=== PATIENT | female | born 1935 | race Caucasian/White ===

== ENCOUNTER 2017-02-28 23:26 | Emergency (ER) | payer OTHER ==
[2017-02-28 23:39] VITALS: BP 222/89; BMI 21.9
[2017-02-28] MEDS ORDERED: NEOSPORIN OINT ONE (23:50)
--- NOTE | 2017-02-28 23:54 | DR.GENAD ---
HPI - PCP Primary Care Physician: tucker - Complaint/Symptoms Chief Complaint Doctors Comments: Bleeding from rt. right after being scratched by her pet this afternoon.It was still bleeding is why she came to be seen about. She takes a blood thinner + a daily ASA. Chief Complaint:: pt has a scratch to rt hand from her puppy - Nurses notes reviewed Nurses Notes Review: Yes - Source History Provided: Patient - Mode of Arrival Mode of Arrival: Ambulatory - Timing Onset of Chief Complaint: 02/28/17 PMH - PMH Past Medical History: Yes Past Medical History: Arthritis, COPD, Dyslipidemia, GERD, Hypertension Past Surgical History: Yes Surgical History: Cholecystectomy, Hysterectomy Past Surgical History Comment: a fib - Family History History of Family Medical Conditions: Yes Family Medical History: Coronary Artery Disease, Hypertension - Social History Type of Tobacco Use: Cigarettes Does any household member use tobacco: No Alcohol Use: None Do you use any recreational Drugs:: No Lives With: Family Lives Where: Home - infectious screening In the last 2 months have you had wt loss of >10#?: NO Have you had fever, night sweats or hemotysis?: No Have you traveled outside the country in the last 6 months?: No Isolation: Standard ROS - Review of Systems Constitutional: No Symptoms Reported Eyes: No Symptoms Reported ENTM: No Symptoms Reported Respiratoy: No Symptoms Reported Cardiovascular: No Symptoms Reported Gastrointestinal/Abdominal: No Symptoms Reported Genitourinary: No Symptoms Reported Neurological: No Symptoms Reported Musculoskeletal: No Symptoms Reported Integumentary: Other (bleeding from a scratch) Hematologic/Lymphatic: No Symptoms Reported Endocrine: No Symptoms Reported Psychiatric: No Symptoms Reported All Other Systems: Reviewed and Negative PE - Vital Signs Vitals: Temperature 978 F Pulse Rate 61 Respiratory Rate 18 Blood Pressure [Left Arm] 176/57 Blood Pressure [Standing] 207/91 Blood Pressure [Sitting] 212/91 Blood Pressure [Lying] 210/91 Blood Pressure 222/89 O2 Sat by Pulse Oximetry 99 - General Limitations: No Limitations General Appearance: Alert, In No Apparent Distress - Head Head Exam: Normal Inspection, Normocephalic - Eyes Eye exam: Normal Appearance - ENT ENT Exam: Normal Exam - Neck Neck Exam: Normal Inspection, Full ROM, Trachea Midline - Chest Chest Inspection: Normal Inspection - Respiratory Respiratory Exam: Normal Lung Sounds Bilat - Cardiovascular Cardiovascular Exam: Regular Rate, Normal Rhythm, +S1, +S2 - Abdominal Exam Abdominal Exam: Normal Bowel Sounds, Soft - Extremities Extremities Exam: Normal Inspection, Normal Capillary Refill - Back Back Exam: Normal Inspection - Neurologic Neurological Exam: Alert, Oriented X3, CN II-XII Intact - Psychiatric Psychiatric Exam: Normal Affect - Skin Skin Exam: Warm, Dry, Other (Dry, brittle skin. A small cut on the dorsum or the rt. hand between her 1st and 2nd metarcarpal. this has small oozing blood from it. Bleeding is controlled with pressure dressing.) Course - Reevaluation 1st: Improved - Diagnosis Discharge Problem: Puncture wound of hand, right - Discharge Plan Disposition: 01 HOME, SELF-CARE Condition: Stable - Follow ups/Referrals Follow ups/Referrals: NKECHI LOPEZ [Primary Care Provider] - 3 days - Instructions
== END 2017-03-01 00:03 | disposition home or self-care (01) ==
LOC: ER 23:26
PROC: 0XQJXZZ Repair Right Hand, External Approach (ICD-10-PCS; principal; 2017-02-28)
DX: S61.431A Puncture wound without foreign body of right hand, initial encounter (principal); W45.8XXA Other foreign body or object entering through skin, initial encounter
CPT/HCPCS: 12001; 99282

== ENCOUNTER 2018-05-15 09:05 | Inpatient (IN) ==
--- NOTE | 2018-05-15 09:36 | DR.SOBA ---
HPI Time Seen Time Seen by Provider: 05/15/18 09:34 Primary Care Physician Primary Care Physician: DR LOPEZ Complaints Chief Complaint:: PT C/O 2 DAY HISTORY OF SHORTNESS OF BREATH WHICH WAS MORE SEVERE WHEN SHE WOKE UP THIS MORNING. SOB IS WORSENED WITH ANY EXERTION. PT ALSO C/O NONPRODUCTIVE COUGH AND CHILLS. Source History Provided: Patient Mode of Arrival Mode of Arrival: Ambulatory Timing Onset of Chief Complaint: 05/15/18 PMH PMH Past Medical History: Yes Past Medical History: Arthritis, COPD, Dyslipidemia and Hypertension Past Medical History Comment: AFIB Past Surgical History: Yes Surgical History: Cholecystectomy and Hysterectomy Family History History of Family Medical Conditions: Yes Family Medical History: Diabetes Mellitus and Cancer Social History Does patient currently use any type of tobacco product: No Have you used tobacco products in the last 12 months: No Type of Tobacco Use: None Does any household member use tobacco: Yes Alcohol Use: None Do you use any recreational Drugs:: No Lives With: Spouse Lives Where: Home infectious screening In the last 2 months have you had wt loss of >10#?: NO Have you had fever, night sweats or hemotysis?: No Have you traveled outside the country in the last 6 months?: No Isolation: Standard ROS Review of Systems Constitutional: Weakness Eyes: No Symptoms Reported ENTM: No Symptoms Reported Respiratoy: See HPI, Non-Productive Cough, Moist Cough, Dry Cough and Short of Breath Cardiovascular: No Symptoms Reported Gastrointestinal/Abdominal: No Symptoms Reported Genitourinary: No Symptoms Reported Neurological: No Symptoms Reported Musculoskeletal: No Symptoms Reported and See HPI Integumentary: No Symptoms Reported and See HPI Hematologic/Lymphatic: No Symptoms Reported PE Vital Signs Vitals: Temperature 97.8 F Pulse Rate [Left Radial] 61 Pulse Rate 47 Respiratory Rate 20 Blood Pressure [Right Arm] 206/84 Blood Pressure [Left Arm] 162/72 Blood Pressure [Standing] 207/91 Blood Pressure [Sitting] 212/91 Blood Pressure [Lying] 210/91 Blood Pressure 204/82 O2 Sat by Pulse Oximetry 97 General Limitations: Physical Limitation General Appearance: Alert and Anxious Head Head Exam: Normal Inspection, Atraumatic and Normocephalic Eyes Eye exam: Normal Appearance, PERRL and EOMI ENT ENT Exam: Normal Exam, Normal Oropharynx and Normal External Ear Exam Chest Chest Inspection: Normal Inspection and Symmetric Chest Wall Rise Respiratory Respiratory Exam: Accessory Muscle Use Respiratory Exam: Bilateral: Rhonchi Cardiovascular Cardiovascular Exam: Regular Rate and Normal Rhythm Abdominal Exam Abdominal Exam: Normal Inspection and Normal Bowel Sounds Extremities Extremities Exam: Normal Inspection and Full ROM Back Back Exam: Normal Inspection and Full ROM Neurologic Neurological Exam: Alert, Oriented X3 and CN II-XII Intact Psychiatric Psychiatric Exam: Normal Affect and Normal Mood Skin Skin Exam: Warm, Dry, Intact and Normal Color COURSE Treatment Treatment: DuoNeb,Decadron Reevaluation 1st: Improved Consultation Called: 11:05 Consultation Comments: Case discussed with Dr. Robins who agreed to admit for pneumonia protocol and further workup and treatment ROR Labs Reviewed Result Diagrams: 05/15/18 10:50 05/15/18 10:50 Laboratory: WBC 6.3 X10^3/uL (3.6-10.0) 05/15/18 10:50 RBC 3.70 X10^6/uL (3.5-5.4) 05/15/18 10:50 Hgb 11.3 g/dL (12.0-16.0) L 05/15/18 10:50 Hct 34.3 % (36.0-47.0) L 05/15/18 10:50 MCV 92.7 fL (80.0-100.0) 05/15/18 10:50 MCH 30.4 pg (27.0-34.0) 05/15/18 10:50 MCHC 32.8 g/dL (33.0-35.0) L 05/15/18 10:50 RDW 14.5 % (11.6-16.5) 05/15/18 10:50 Plt Count 239 X10^3/uL (150.0-450.0) 05/15/18 10:50 MPV 9.8 fL (7.4-11.0) 05/15/18 10:50 Neut % (Auto) 76.0 % (42.0-75.0) H 05/15/18 10:50 Lymph % (Auto) 13.8 % (21.0-51.0) L 05/15/18 10:50 [place] % (Auto) 6.6 % (0.0-13.0) 05/15/18 10:50 Eos % (Auto) 2.2 % (0.9-2.9) 05/15/18 10:50 Baso % (Auto) 1.4 % (0.2-1.0) H 05/15/18 10:50 Neut # (Auto) 4.8 x10^3/uL (2.2-4.8) 05/15/18 10:50 Lymph # (Auto) 0.9 X10^3/uL (1.3-2.9) L 05/15/18 10:50 [place] # (Auto) 0.4 x10^3/uL (0.3-0.8) 05/15/18 10:50 Eos # (Auto) 0.1 x10^3/uL (0.0-0.2) 05/15/18 10:50 Baso # (Auto) 0.1 X10^3/uL (0.0-0.1) 05/15/18 10:50 Absolute Nucleated RBC 0.0 /100WBC 05/15/18 10:50 D-Dimer 1230 ng/mL (0-400) H* 05/15/18 10:50 Sodium 141 mmol/L (136-145) 05/15/18 10:50 Corrected Sodium TNP 05/15/18 10:50 Potassium 4.7 mmol/L (3.5-5.1) 05/15/18 10:50 Chloride 102 mmol/L (98-107) 05/15/18 10:50 Carbon Dioxide 31.4 mmol/L (21-32) 05/15/18 10:50 BUN 26 mg/dL (7-18) H 05/15/18 10:50 Creatinine 1.54 mg/dL (0.55-1.02) H 05/15/18 10:50 Est GFR (MDRD) Af Amer 42 (>60) L 05/15/18 10:50 Est GFR (MDRD) Non-Af 34 (>60) L 05/15/18 10:50 Glucose 109 mg/dL (65-99) H 05/15/18 10:50 Calcium 9.3 mg/dL (8.5-10.1) 05/15/18 10:50 Corrected Calcium TNP 05/15/18 10:50 Total Bilirubin 0.50 mg/dL (0.2-1.0) 05/15/18 10:50 AST 35 Units/L (15-37) 05/15/18 10:50 ALT 33 Units/L (12-78) 05/15/18 10:50 Alkaline Phosphatase 157 Units/L (46-116) H 05/15/18 10:50 Creatine Kinase 233 Units/L (26-192) H 05/15/18 10:50 CK-MB (CK-2) 4.6 ng/mL (0-4.0) H* 05/15/18 10:50 CK/CKMB % Calc 2.0 % (<4) 05/15/18 10:50 Troponin I < 0.02 ng/mL (0-1.5) 05/15/18 10:50 C-Reactive Protein 3.30 mg/L (0-3.0) H 05/15/18 10:50 Total Protein 7.3 g/dL (6.4-8.2) 05/15/18 10:50 Albumin 3.7 g/dL (3.4-5.0) 05/15/18 10:50 Globulin 3.6 g/dL (2.5-4.5) 05/15/18 10:50 Albumin/Globulin Ratio 1.0 Ratio (1.1-2.1) L 05/15/18 10:50 Specimen Type Catherized urine 05/15/18 12:52 Urine Color Yellow (YELLOW) 05/15/18 12:52 Urine Appearance Clear (CLEAR) 05/15/18 12:52 Urine pH 6.5 (5.0 - 8.0) 05/15/18 12:52 Ur Specific [place] 1.010 (1.000-1.030) 05/15/18 12:52 Urine Protein Negative (NEGATIVE) 05/15/18 12:52 Urine Glucose (UA) Negative (NEGATIVE) 05/15/18 12:52 Urine Ketones Negative (NEGATIVE) 05/15/18 12:52 Urine Occult Blood Negative (NEGATIVE) 05/15/18 12:52 Urine Nitrite Negative (NEGATIVE) 05/15/18 12:52 Urine Bilirubin Negative (NEGATIVE) 05/15/18 12:52 Urine Urobilinogen Normal (NORMAL) 05/15/18 12:52 Ur Leukocyte Esterase Negative (NEGATIVE) 05/15/18 12:52 Urine RBC 0-2 /HPF (NONE SEEN) 05/15/18 09:44 Urine WBC 0-2 /HPF (NONE SEEN) 05/15/18 09:44 Ur Squamous Epith Cells Rare /HPF (NEGATIVE) 05/15/18 09:44 Amorphous Sediment Trace /HPF (NEGATIVE) 05/15/18 09:44 Urine Bacteria Trace /HPF (NEGATIVE) 05/15/18 09:44 Ur Culture Indicated? No/not indicated 05/15/18 09:44 Other Results Comments: Chest: the heart is enlarged. The pulmonary vessels are now distended and indistinct with bilateral perihilar and lower lobe infiltrates. Suspect right subpulmonic effusion. Impression: Cardiac enlargement with additional described findings consistent whith CHF and interstitial edema. Superimposed pneumonia could be present. XRAY XRAY Interpreted by: Radiologist Diagnosis Discharge Problem: Pneumonia, CHF (congestive heart failure), COPD (chronic obstructive pulmonary disease)
[2018-05-15] MEDS ORDERED: DUONEB 0.5 MG/3 MG NEB ONE (09:44)
[2018-05-15] MEDS ORDERED: DECADRON INJ IM ONE (09:44)
[2018-05-15] MEDS ORDERED: DUONEB 0.5 MG/3 MG ONE (09:53)
[2018-05-15] MEDS ORDERED: DECADRON INJ ONE (09:53)
[2018-05-15 10:00] LABS: BILIRUBIN,URINE NEGATIVE (NEGATIVE); BLOOD/HEMOGLOBIN,URINE NEGATIVE (NEGATIVE); GLUCOSE, URINE NEGATIVE (NEGATIVE); KETONES,URINE NEGATIVE (NEGATIVE); LEUKOCYTE ESTERASE ,URINE NEGATIVE (NEGATIVE); NITRITES,URINE NEGATIVE (NEGATIVE); PROTEIN,URINE 1+ (NEGATIVE); UROBILINOGEN,URINE NORMAL (NORMAL)
[2018-05-15 10:02] LABS: APPEARANCE,URINE CLEAR (CLEAR); COLOR,URINE YELLOW (YELLOW)
[2018-05-15 10:05] LABS: RBC,URINE 0-2 /HPF (NONE SEEN)
[2018-05-15 10:06] LABS: AMORPHOUS SEDIMENT,UR TRACE /HPF (NEGATIVE); BACTERIA,URINE TRACE /HPF (NEGATIVE); SQUAMOUS EPITHELIAL CELL,UR RARE /HPF (NEGATIVE)
--- NOTE | 2018-05-15 10:10 | RAD ---
Examination: AP chest History: Cough Comparison 11/15/2015 Findings: The heart is enlarged. The pulmonary vessels are now distended and indistinct with bilateral perihilar and lower lobe infiltrates. Suspect right subpulmonic effusion. Impression: Cardiac enlargement with additional described findings consistent with CHF and interstitial edema. Superimposed pneumonia could be present. Reported By:
[2018-05-15] MEDS ORDERED: CATAPRES TAB 0.1 MG ONE (10:35)
[2018-05-15] MEDS ORDERED: CATAPRES TAB 0.1 MG PO ONE (10:35)
[2018-05-15 11:11] LABS: BASOPHILS # (AUTO) 0.1 X10^3/uL (0.0-0.1); BASOPHILS % (AUTO) 1.4 % (0.2-1.0); EOSINOPHILS # (AUTO) 0.1 x10^3/uL (0.0-0.2); EOSINOPHILS % (AUTO) 2.2 % (0.9-2.9); HEMATOCRIT 34.3 % (36.0-47.0); HEMOGLOBIN 11.3 g/dL (12.0-16.0); LYMPHOCYTES # (AUTO) 0.9 X10^3/uL (1.3-2.9); LYMPHOCYTES % (AUTO) 13.8 % (21.0-51.0); MEAN CORPUSCULAR HEMOGLOBIN 30.4 pg (27.0-34.0); MEAN CORPUSCULAR HGB CONC 32.8 g/dL (33.0-35.0); MEAN CORPUSCULAR VOLUME 92.7 fL (80.0-100.0); MEAN PLATELET VOLUME 9.8 fL (7.4-11.0); MONOCYTES # (AUTO) 0.4 x10^3/uL (0.3-0.8); MONOCYTES % (AUTO) 6.6 % (0.0-13.0); NEUTROPHILS # (AUTO) 4.8 x10^3/uL (2.2-4.8); PLATELET COUNT 239 X10^3/uL (150.0-450.0); RED CELL DISTRIBUTION WIDTH 14.5 % (11.6-16.5); WHITE BLOOD COUNT 6.3 X10^3/uL (3.6-10.0)
[2018-05-15 11:18] LABS: ALANINE AMINOTRANSFERASE 33 Units/L (12-78); ALBUMIN 3.7 g/dL (3.4-5.0); ALKALINE PHOSPHATASE 157 Units/L (46-116); ASPARTATE AMINO TRANSFERASE 35 Units/L (15-37); BLOOD UREA NITROGEN 26 mg/dL (7-18); CALCIUM 9.3 mg/dL (8.5-10.1); CARBON DIOXIDE 31.4 mmol/L (21-32); CHLORIDE 102 mmol/L (98-107); CREATININE 1.54 mg/dL (0.55-1.02); SODIUM 141 mmol/L (136-145); TOTAL PROTEIN 7.3 g/dL (6.4-8.2); eGFR NON BLACK RACES 34 (>60)
[2018-05-15] MEDS ORDERED: NS 1/2 1000 ML IV 1,000 ML IV SCH (12:00)
[2018-05-15] MEDS ORDERED: SALINE 3% 15 ML NEB TX NEB ONE (12:06)
--- NOTE | 2018-05-15 12:43 | DR.H&P ---
H&P - History & Physical for Day of: H&P Date: 05/15/18 - Chief Complaint Chief Complaint: SOB, SPUTUM PRODUCTION, LOWER LEG SWELLING - Past Medical History Past Medical History: Hypertension, Dyslipidemia, COPD, Arthritis - Past Surgical History Surgical History: Cholecystectomy, Hysterectomy - Family History Family Medical History: Diabetes Mellitus, Cancer - Social History Does patient currently use any type of tobacco product: No Have you used tobacco products in the last 12 months: No Type of Tobacco Use: None Does any household member use tobacco: Yes Alcohol Use: None - Medications Home Medications: No Known Drug Allergies Allergy (Verified 02/28/17 23:31) CONTINUE taking the following medications apixaban [Eliquis] 2.5 mg PO BID 05/15/18 [History] cholecalciferol (vitamin D3) [Vitamin D3] 400 mg PO DAILY 05/15/18 [History] flecainide 100 mg PO BID 05/15/18 [History] furosemide 40 mg PO DAILY 05/15/18 [History] gabapentin 1 cap PO TID 05/15/18 [History] meloxicam 7.5 mg PO DAILY 05/15/18 [History] montelukast 10 mg PO HS 05/15/18 [History] ropinirole 1 mg PO DAILY 05/15/18 [History] temazepam 15 mg PO HS PRN 05/15/18 [History] tizanidine 2 mg PO HS PRN 05/15/18 [History] umeclidinium [Incruse Ellipta] 1 inh INHALATION DAILY 05/15/18 [History] - Physical Exam Vital Signs: Temperature 97.2 F Pulse Rate [Left Radial] 60 Pulse Rate 51 Respiratory Rate 18 Blood Pressure [Left Arm] 168/72 Blood Pressure [Standing] 207/91 Blood Pressure [Sitting] 212/91 Blood Pressure [Lying] 210/91 Blood Pressure 204/82 O2 Sat by Pulse Oximetry 96 - Allergies Allergies/Adverse Reactions: Allergies Allergy/AdvReac Type Severity Reaction Status Date / Time No Known Drug Allergies Allergy Verified 02/28/17 23:31
[2018-05-15] MEDS: NS 1000 ML 1,000 ML IV SCH (12:50)
[2018-05-15] MEDS: LEVAQUIN PREMIX IV 500 MG 500 MG/100 ML BAG IV SCH (12:50)
[2018-05-15 12:52] LABS: CREATINE KINASE 233 Units/L (26-192); TROPONIN I < 0.02 ng/mL (0-1.5)
[2018-05-15] MEDS ORDERED: Atrovent NEB TX 0.02% NEB SCH (13:00)
[2018-05-15 13:01] LABS: CREATINE KINASE MB 4.6 ng/mL (0-4.0)
[2018-05-15 13:24] LABS: BILIRUBIN,URINE NEGATIVE (NEGATIVE); BLOOD/HEMOGLOBIN,URINE NEGATIVE (NEGATIVE); GLUCOSE, URINE NEGATIVE (NEGATIVE); KETONES,URINE NEGATIVE (NEGATIVE); LEUKOCYTE ESTERASE ,URINE NEGATIVE (NEGATIVE); NITRITES,URINE NEGATIVE (NEGATIVE); PH,URINE 6.5 (5.0 - 8.0); PROTEIN,URINE NEGATIVE (NEGATIVE); UROBILINOGEN,URINE NORMAL (NORMAL)
[2018-05-15] MEDS: ROBITUSSIN DM PO SCH ×3 (13:27→20:52)
[2018-05-15] MEDS: NEURONTIN CAP 100 MG PO SCH ×2 (13:27→21:00)
[2018-05-15] MEDS: APRESOLINE TAB 25 MG PO SCH ×2 (13:27→21:00)
[2018-05-15 13:52] LABS: APPEARANCE,URINE CLEAR (CLEAR); COLOR,URINE YELLOW (YELLOW)
[2018-05-15] MEDS ORDERED: ATIVAN INJ 2 MG VIAL IVP ONE (15:23)
[2018-05-15] MEDS ORDERED: ATIVAN INJ 2 MG VIAL ONE (15:24)
--- NOTE | 2018-05-15 15:51 | CT ---
HISTORY: Shortness of breath for 2 days. Study: CT chest without contrast Comparison: Chest x-ray dated same day. Technique: Multiple axial images of the chest were obtained from the thoracic inlet to the upper abdomen without the administration of IV contrast. MIP images were obtained. Dose reduction techniques including Automated Exposure Control (AEC) and adjustment of mA and kV were utilized. Study limited secondary to lack of IV contrast. Findings: The mediastinum does not demonstrate significant pathological lymphadenopathy. The thoracic aorta is normal in its contour without evidence for aneurysmal dilatation. Cardiomegaly with large pericardial effusion. [id number] coronary artery and thoracic aortic calcifications. Large right and small left pleural effusions with associated compressive atelectasis versus infiltrate. Fluid is seen within the bilateral major fissures. Within the anterior lingula there is a subpleural 1.3 x 1.3 x 0.8 cm spiculated pulmonary nodule (series 3, image 21 and series 6, image 14). No other obvious pulmonary nodules, mass, or pneumothorax. Vascular calcifications without evidence of aneurysmal dilatation within the upper abdomen. Remaining upper abdominal structures are unremarkable given technique. Degenerative changes of the spine. No aggressive osseous lesions. IMPRESSION: 1. Constellation of findings likely representing pulmonary edema secondary to congestive heart failure. Underlying infiltrate not entirely excluded. Recommend clinical/laboratory correlation. 2. 1.3 cm spiculated nodule within the lingula as above. This is suspicious. Recommend PET-CT for further characterization. 3. Other chronic findings as above. Reported By:
[2018-05-15] MEDS: Atrovent NEB TX 0.02% NEB SCH (17:00)
[2018-05-15] MEDS: XOPENEX 1.25 MG/3 ML NEBULE NEB SCH (17:01)
[2018-05-15] MEDS: NORCO 10/325 TAB PO PRN (19:30)
[2018-05-15] MEDS: PULMICORT NEB TX 0.5 MG NEB SCH (20:36)
[2018-05-15] MEDS: BROVANA IN SCH (20:38)
[2018-05-15] MEDS: RESTORIL CAP 15 MG PO PRN (20:52)
[2018-05-15] MEDS: ELIQUIS PO SCH (20:52)
[2018-05-15] MEDS: TAMBOCOR PO SCH (20:53)
[2018-05-15] MEDS ORDERED: LASIX IVP SCH (21:00)
[2018-05-15 21:26] LABS: CKMB % 2.3 % (<4); TROPONIN I 0.02 ng/mL (0-1.5)
[2018-05-15 21:37] LABS: CREATINE KINASE MB 4.5 ng/mL (0-4.0)
[2018-05-15] MEDS: TUSSIONEX PENNKINETIC SUSP PO PRN (22:02)
[2018-05-15] MEDS: REQUIP PO SCH (22:02)
[2018-05-16] MEDS: Atrovent NEB TX 0.02% NEB SCH ×4 (00:51→17:20)
[2018-05-16] MEDS: XOPENEX 1.25 MG/3 ML NEBULE NEB SCH ×4 (00:51→17:20)
[2018-05-16 04:14] LABS: BASOPHILS % (AUTO) 0.5 % (0.2-1.0); EOSINOPHILS % (AUTO) 0.1 % (0.9-2.9); HEMATOCRIT 29.3 % (36.0-47.0); HEMOGLOBIN 9.8 g/dL (12.0-16.0); LYMPHOCYTES # (AUTO) 0.6 X10^3/uL (1.3-2.9); LYMPHOCYTES % (AUTO) 8.7 % (21.0-51.0); MEAN CORPUSCULAR HEMOGLOBIN 30.7 pg (27.0-34.0); MEAN CORPUSCULAR HGB CONC 33.3 g/dL (33.0-35.0); MEAN CORPUSCULAR VOLUME 92.2 fL (80.0-100.0); MEAN PLATELET VOLUME 9.3 fL (7.4-11.0); MONOCYTES # (AUTO) 0.4 x10^3/uL (0.3-0.8); MONOCYTES % (AUTO) 6.9 % (0.0-13.0); NEUTROPHILS # (AUTO) 5.4 x10^3/uL (2.2-4.8); NEUTROPHILS % (AUTO) 83.8 % (42.0-75.0); PLATELET COUNT 194 X10^3/uL (150.0-450.0); RED BLOOD COUNT 3.18 X10^6/uL (3.5-5.4); RED CELL DISTRIBUTION WIDTH 14.4 % (11.6-16.5); WHITE BLOOD COUNT 6.5 X10^3/uL (3.6-10.0)
[2018-05-16 04:31] LABS: ALBUMIN 3.1 g/dL (3.4-5.0); CALCIUM 8.7 mg/dL (8.5-10.1); CARBON DIOXIDE 31.2 mmol/L (21-32); CKMB % 2.2 % (<4); COR CA(FOR HYPOALB) 9.4 mg/dL (8.5-10.1); CREATINE KINASE MB 3.3 ng/mL (0-4.0); CREATININE 1.72 mg/dL (0.55-1.02); TOTAL PROTEIN 6.2 g/dL (6.4-8.2); TROPONIN I 0.02 ng/mL (0-1.5)
[2018-05-16] MEDS: APRESOLINE TAB 25 MG PO SCH ×4 (04:59→22:29)
[2018-05-16] MEDS: NORCO 10/325 TAB PO PRN (05:00)
[2018-05-16] MEDS: NEURONTIN CAP 100 MG PO SCH ×4 (05:00→22:29)
[2018-05-16] MEDS: BROVANA IN SCH ×2 (08:46→20:09)
[2018-05-16] MEDS: ROBITUSSIN DM PO SCH ×4 (08:54→20:21)
[2018-05-16] MEDS: TAMBOCOR PO SCH ×2 (08:54→20:21)
[2018-05-16] MEDS: MOBIC TAB 15 MG PO SCH (08:54)
[2018-05-16] MEDS: ELIQUIS PO SCH ×2 (08:54→20:21)
[2018-05-16] MEDS: PRAVACHOL PO SCH (08:54)
[2018-05-16] MEDS: LASIX IVP SCH ×2 (08:54→20:21)
[2018-05-16] MEDS: CHOLECALCIFEROL 400 MG PO SCH (08:58)
[2018-05-16] MEDS ORDERED: REQUIP PO SCH (09:00)
[2018-05-16] MEDS ORDERED: UMECLIDINIUM IN SCH (09:00)
[2018-05-16] MEDS: XOPENEX 1.25 MG/3 ML NEBULE NEB PRN ×2 (09:10→19:46)
[2018-05-16] MEDS: PULMICORT NEB TX 0.5 MG NEB SCH ×2 (09:11→20:04)
--- NOTE | 2018-05-16 15:56 | VAS ---
HISTORY: Elevated D-dimer with right leg pain made worse with ambulation.. Study: Bilateral lower extremity venous vascular examination: Multiplanar ultrasonographic examination of the deep venous system of both lower extremities was performed using color, grayscale and pulsed Doppler imaging. Augmentation and compression techniques utilized. Comparison: None Findings: Right lower extremity: The common femoral vein, greater saphenous junction, superficial femoral vein and popliteal vein show normal color flow. No intraluminal filling defects are identified. The common femoral vein, superficial femoral vein and popliteal vein show normal augmentation and compression. There is calcification noted in the common femoral artery. Benign-appearing lymph nodes are present. Left lower extremity: The common femoral vein, greater saphenous junction, superficial femoral vein and popliteal vein show normal color flow. No intraluminal filling defects are identified. The common femoral vein, superficial femoral vein and popliteal vein show normal augmentation and compression. Benign-appearing lymph nodes are present. IMPRESSION: 1. No evidence of deep venous thrombosis involving either lower extremity. 2. Benign-appearing lymph nodes are present in both inguinal regions, not an uncommon finding. Reported By:
[2018-05-16] MEDS: NS 1000 ML 1,000 ML IV SCH (16:33)
--- NOTE | 2018-05-16 17:36 | PCM.PROG ---
Progress Note - Progress Note for Day of Date of Exam: 05/16/18 - Subjective Subjective: 82 WF ER ADMISSION WITH CO SOB. PT HAD PLEURAL EFFUSION WITH NO HISTORY OF CHF. PT HAD CTA CHEST REVEALING 1.3 cm spiculated nodule within the lingula as above. This is suspicious. Recommend PET-CT for further characterization. PT REPORTS HER BREATHING IS A LITTLE BETTER, LOWER EXTREMITY EDEMA IMPROVING. PT HAS [facility] CATH FOR STRICT I&OS WITH IV LASIX 40MG IV X2 DOSES. PT ON IV ATBX THERAPY AND RESP THERAPY. PT IS AFEBRILE. BUN 31, CREAT 1.72. PT CPK DECREASED TO 149. PLAN TO REPEAT AM LABS, CXR AND ABG. - Past Medical Family Social History Past Med/Fam/Surg Hx: No changes since H&P Allergies: Allergies No Known Drug Allergies Allergy (Verified 02/28/17 23:31) - Review of Systems ROS: No change since H&P - Vital Signs and I&O's Vital Signs: Temperature 98.1 F Pulse Rate [Left Radial] 93 Pulse Rate 55 Respiratory Rate 20 Blood Pressure [Right Arm] 152/67 Blood Pressure [Left Arm] 162/72 Blood Pressure [Standing] 207/91 Blood Pressure [Sitting] 212/91 Blood Pressure [Lying] 210/91 Blood Pressure 204/82 O2 Sat by Pulse Oximetry 97 Intake and Output: Intake & Output 05/14/18 05/15/18 05/16/18 05/17/18 11:59 11:59 11:59 11:59 Intake Total 1480 / 1480 1136 / 1136 Output Total 3000 / 3000 700 / 700 Balance -1520 / -1520 436 / 436 - Physical Exam Oriented: Normal Eyes: Normal Ear: Normal Nose: Normal Throat: Normal Respiratory: Normal, Diminished, Wheezes Cardiovascular: Edema : Normal Auscultation: Bowel Sounds: Normal Palpation: Normal Tenderness: Normal Skin: Decreased Turgur Musculoskeletal: Back:Lumbar Psychiatric: Anxiety Affect: Anxious Speech Pattern: Clear, Appropriate - Laboratory and Diagnostics Result Diagrams: 05/16/18 03:59 05/16/18 03:59 Labs: Laboratory WBC 6.5 X10^3/uL (3.6-10.0) 05/16/18 03:59 RBC 3.18 X10^6/uL (3.5-5.4) L 05/16/18 03:59 Hgb 9.8 g/dL (12.0-16.0) L 05/16/18 03:59 Hct 29.3 % (36.0-47.0) L 05/16/18 03:59 MCV 92.2 fL (80.0-100.0) 05/16/18 03:59 MCH 30.7 pg (27.0-34.0) 05/16/18 03:59 MCHC 33.3 g/dL (33.0-35.0) 05/16/18 03:59 RDW 14.4 % (11.6-16.5) 05/16/18 03:59 Plt Count 194 X10^3/uL (150.0-450.0) 05/16/18 03:59 MPV 9.3 fL (7.4-11.0) 05/16/18 03:59 Neut % (Auto) 83.8 % (42.0-75.0) H 05/16/18 03:59 Lymph % (Auto) 8.7 % (21.0-51.0) L 05/16/18 03:59 [place] % (Auto) 6.9 % (0.0-13.0) 05/16/18 03:59 Eos % (Auto) 0.1 % (0.9-2.9) L 05/16/18 03:59 Baso % (Auto) 0.5 % (0.2-1.0) 05/16/18 03:59 Neut # (Auto) 5.4 x10^3/uL (2.2-4.8) H 05/16/18 03:59 Lymph # (Auto) 0.6 X10^3/uL (1.3-2.9) L 05/16/18 03:59 [place] # (Auto) 0.4 x10^3/uL (0.3-0.8) 05/16/18 03:59 Eos # (Auto) 0.0 x10^3/uL (0.0-0.2) 05/16/18 03:59 Baso # (Auto) 0.0 X10^3/uL (0.0-0.1) 05/16/18 03:59 Absolute Nucleated RBC 0.0 /100WBC 05/16/18 03:59 D-Dimer 1230 ng/mL (0-400) H* 05/15/18 10:50 Sodium 138 mmol/L (136-145) 05/16/18 03:59 Corrected Sodium 139 mmol/L (136-145) 05/16/18 03:59 Potassium 4.7 mmol/L (3.5-5.1) 05/16/18 03:59 Chloride 100 mmol/L (98-107) 05/16/18 03:59 Carbon Dioxide 31.2 mmol/L (21-32) 05/16/18 03:59 BUN 31 mg/dL (7-18) H 05/16/18 03:59 Creatinine 1.72 mg/dL (0.55-1.02) H 05/16/18 03:59 Est GFR (MDRD) Af Amer 37 (>60) L 05/16/18 03:59 Est GFR (MDRD) Non-Af 30 (>60) L 05/16/18 03:59 Glucose 122 mg/dL (65-99) H 05/16/18 03:59 Calcium 8.7 mg/dL (8.5-10.1) 05/16/18 03:59 Corrected Calcium 9.4 mg/dL (8.5-10.1) 05/16/18 03:59 Total Bilirubin 0.30 mg/dL (0.2-1.0) 05/16/18 03:59 AST 26 Units/L (15-37) 05/16/18 03:59 ALT 27 Units/L (12-78) 05/16/18 03:59 Alkaline Phosphatase 135 Units/L (46-116) H 05/16/18 03:59 Creatine Kinase 149 Units/L (26-192) 05/16/18 03:59 CK-MB (CK-2) 3.3 ng/mL (0-4.0) 05/16/18 03:59 CK/CKMB % Calc 2.2 % (<4) 05/16/18 03:59 Troponin I 0.02 ng/mL (0-1.5) 05/16/18 03:59 C-Reactive Protein 3.30 mg/L (0-3.0) H 05/15/18 10:50 Total Protein 6.2 g/dL (6.4-8.2) L 05/16/18 03:59 Albumin 3.1 g/dL (3.4-5.0) L 05/16/18 03:59 Globulin 3.1 g/dL (2.5-4.5) 05/16/18 03:59 Albumin/Globulin Ratio 1.0 Ratio (1.1-2.1) L 05/16/18 03:59 Specimen Type Catherized urine 05/15/18 12:52 Urine Color Yellow (YELLOW) 05/15/18 12:52 Urine Appearance Clear (CLEAR) 05/15/18 12:52 Urine pH 6.5 (5.0 - 8.0) 05/15/18 12:52 Ur Specific [place] 1.010 (1.000-1.030) 05/15/18 12:52 Urine Protein Negative (NEGATIVE) 05/15/18 12:52 Urine Glucose (UA) Negative (NEGATIVE) 05/15/18 12:52 Urine Ketones Negative (NEGATIVE) 05/15/18 12:52 Urine Occult Blood Negative (NEGATIVE) 05/15/18 12:52 Urine Nitrite Negative (NEGATIVE) 05/15/18 12:52 Urine Bilirubin Negative (NEGATIVE) 05/15/18 12:52 Urine Urobilinogen Normal (NORMAL) 05/15/18 12:52 Ur Leukocyte Esterase Negative (NEGATIVE) 05/15/18 12:52 Urine RBC 0-2 /HPF (NONE SEEN) 05/15/18 09:44 Urine WBC 0-2 /HPF (NONE SEEN) 05/15/18 09:44 Ur Squamous Epith Cells Rare /HPF (NEGATIVE) 05/15/18 09:44 Amorphous Sediment Trace /HPF (NEGATIVE) 05/15/18 09:44 Urine Bacteria Trace /HPF (NEGATIVE) 05/15/18 09:44 Ur Culture Indicated? No/not indicated 05/15/18 09:44 - Plan (1) Abnormal CT scan, lung Status: Acute Plan: PT WILL NEED PET SCAN AND PULMONOLOGY REFERRAL (2) Pneumonia Status: Acute (3) Hypertension Status: Chronic Qualifiers: Hypertension type: essential hypertension Qualified Code(s): I10 - Essential (primary) hypertension (4) CHF (congestive heart failure) Status: Acute (5) COPD (chronic obstructive pulmonary disease) Status: Acute
[2018-05-16] MEDS: TUSSIONEX PENNKINETIC SUSP PO PRN (20:21)
[2018-05-16] MEDS: REQUIP PO SCH (20:21)
[2018-05-17] MEDS: XOPENEX 1.25 MG/3 ML NEBULE NEB SCH ×4 (00:48→17:34)
[2018-05-17] MEDS: Atrovent NEB TX 0.02% NEB SCH ×4 (00:48→17:34)
[2018-05-17] MEDS: APRESOLINE TAB 25 MG PO SCH ×3 (05:27→21:41)
[2018-05-17] MEDS: NEURONTIN CAP 100 MG PO SCH ×3 (05:27→21:41)
[2018-05-17 05:36] LABS: BASOPHILS # (AUTO) 0.1 X10^3/uL (0.0-0.1); BASOPHILS % (AUTO) 1.2 % (0.2-1.0); EOSINOPHILS % (AUTO) 0.7 % (0.9-2.9); HEMATOCRIT 30.1 % (36.0-47.0); HEMOGLOBIN 10.1 g/dL (12.0-16.0); LYMPHOCYTES # (AUTO) 0.8 X10^3/uL (1.3-2.9); LYMPHOCYTES % (AUTO) 11.5 % (21.0-51.0); MEAN CORPUSCULAR HEMOGLOBIN 30.6 pg (27.0-34.0); MEAN CORPUSCULAR HGB CONC 33.5 g/dL (33.0-35.0); MEAN CORPUSCULAR VOLUME 91.4 fL (80.0-100.0); MEAN PLATELET VOLUME 9.7 fL (7.4-11.0); MONOCYTES # (AUTO) 0.6 x10^3/uL (0.3-0.8); MONOCYTES % (AUTO) 8.3 % (0.0-13.0); NEUTROPHILS # (AUTO) 5.4 x10^3/uL (2.2-4.8); NEUTROPHILS % (AUTO) 78.3 % (42.0-75.0); PLATELET COUNT 208 X10^3/uL (150.0-450.0); RED BLOOD COUNT 3.29 X10^6/uL (3.5-5.4); RED CELL DISTRIBUTION WIDTH 14.5 % (11.6-16.5); WHITE BLOOD COUNT 6.9 X10^3/uL (3.6-10.0)
[2018-05-17 05:58] LABS: ALANINE AMINOTRANSFERASE 25 Units/L (12-78); ALBUMIN 3.1 g/dL (3.4-5.0); ALKALINE PHOSPHATASE 132 Units/L (46-116); ASPARTATE AMINO TRANSFERASE 23 Units/L (15-37); BLOOD UREA NITROGEN 30 mg/dL (7-18); CALCIUM 8.4 mg/dL (8.5-10.1); CARBON DIOXIDE 30.6 mmol/L (21-32); CHLORIDE 98 mmol/L (98-107); COR CA(FOR HYPOALB) 9.1 mg/dL (8.5-10.1); CREATININE 1.62 mg/dL (0.55-1.02); SODIUM 136 mmol/L (136-145); TOTAL PROTEIN 6.4 g/dL (6.4-8.2); eGFR NON BLACK RACES 32 (>60)
[2018-05-17] MEDS: CHOLECALCIFEROL 400 MG PO SCH (08:40)
[2018-05-17] MEDS: MOBIC TAB 15 MG PO SCH (08:42)
[2018-05-17] MEDS: LASIX IVP SCH ×2 (08:42→21:41)
[2018-05-17] MEDS: ROBITUSSIN DM PO SCH ×4 (08:42→21:40)
[2018-05-17] MEDS: ELIQUIS PO SCH ×2 (08:42→21:41)
[2018-05-17] MEDS: TUSSIONEX PENNKINETIC SUSP PO PRN ×2 (08:42→21:40)
[2018-05-17] MEDS: TAMBOCOR PO SCH ×2 (08:42→21:40)
[2018-05-17] MEDS: PRAVACHOL PO SCH (08:42)
[2018-05-17 08:58] LABS: ABG BASE EXCESS 7.8 mmol/L (-2.0-2.0)
[2018-05-17 08:59] LABS: ABG ALLEN TEST POS; ABG HCO3 34.5 mmol/L (22-26)
[2018-05-17] MEDS: PULMICORT NEB TX 0.5 MG NEB SCH ×2 (09:31→20:30)
[2018-05-17] MEDS: BROVANA IN SCH ×2 (09:32→20:41)
--- NOTE | 2018-05-17 13:46 | PCM.PROG ---
Progress Note - Progress Note for Day of Date of Exam: 05/17/18 - Subjective Subjective: 82 WF ER ADMISSION WITH CO SOB. PT HAD PLEURAL EFFUSION WITH NO HISTORY OF CHF. PT HAD CTA CHEST REVEALING 1.3 cm spiculated nodule within the lingula as above. This is suspicious. Recommend PET-CT for further characterization.WE DISCUSSED NEED FOR FURTHER EVALUATION. PT REPORTS HER BREATHING IS A LITTLE BETTER, LOWER EXTREMITY EDEMA IMPROVING. PT HAS [facility] CATH FOR STRICT I&OS WITH IV LASIX DECREASED TO 20MG IV DAILY. PT ON IV ATBX THERAPY AND RESP THERAPY. PT IS AFEBRILE. BUN 30, CREAT 1.62. - Past Medical Family Social History Past Med/Fam/Surg Hx: No changes since H&P Allergies: Allergies No Known Drug Allergies Allergy (Verified 02/28/17 23:31) - Review of Systems ROS: No change since H&P - Vital Signs and I&O's Vital Signs: Temperature 97.9 F Pulse Rate [Left Radial] 59 Pulse Rate 60 Respiratory Rate 20 Blood Pressure [Right Arm] 138/63 Blood Pressure [Left Arm] 162/72 Blood Pressure [Standing] 207/91 Blood Pressure [Sitting] 212/91 Blood Pressure [Lying] 210/91 Blood Pressure 204/82 O2 Sat by Pulse Oximetry 94 Intake and Output: Intake & Output 05/15/18 05/16/18 05/17/18 05/18/18 11:59 11:59 11:59 11:59 Intake Total 1480 / 1480 1736 / 1736 Output Total 3000 / 3000 2150 / 2150 Balance -1520 / -1520 -414 / -414 - Physical Exam Oriented: Normal Eyes: Normal Ear: Normal Nose: Normal Throat: Normal Respiratory: Normal, Diminished, Wheezes Cardiovascular: Edema : Normal Auscultation: Bowel Sounds: Normal Tenderness: Normal Skin: Decreased Turgur Musculoskeletal: Back:Lumbar Psychiatric: Anxiety Affect: Anxious Speech Pattern: Clear, Appropriate - Laboratory and Diagnostics Result Diagrams: 05/17/18 04:55 05/17/18 04:55 Labs: 05/15/18 10:55 Blood Blood Culture - Preliminary 05/15/18 10:50 Blood Blood Culture - Preliminary Laboratory WBC 6.9 X10^3/uL (3.6-10.0) 05/17/18 04:55 RBC 3.29 X10^6/uL (3.5-5.4) L 05/17/18 04:55 Hgb 10.1 g/dL (12.0-16.0) L 05/17/18 04:55 Hct 30.1 % (36.0-47.0) L 05/17/18 04:55 MCV 91.4 fL (80.0-100.0) 05/17/18 04:55 MCH 30.6 pg (27.0-34.0) 05/17/18 04:55 MCHC 33.5 g/dL (33.0-35.0) 05/17/18 04:55 RDW 14.5 % (11.6-16.5) 05/17/18 04:55 Plt Count 208 X10^3/uL (150.0-450.0) 05/17/18 04:55 MPV 9.7 fL (7.4-11.0) 05/17/18 04:55 Neut % (Auto) 78.3 % (42.0-75.0) H 05/17/18 04:55 Lymph % (Auto) 11.5 % (21.0-51.0) L 05/17/18 04:55 [place] % (Auto) 8.3 % (0.0-13.0) 05/17/18 04:55 Eos % (Auto) 0.7 % (0.9-2.9) L 05/17/18 04:55 Baso % (Auto) 1.2 % (0.2-1.0) H 05/17/18 04:55 Neut # (Auto) 5.4 x10^3/uL (2.2-4.8) H 05/17/18 04:55 Lymph # (Auto) 0.8 X10^3/uL (1.3-2.9) L 05/17/18 04:55 [place] # (Auto) 0.6 x10^3/uL (0.3-0.8) 05/17/18 04:55 Eos # (Auto) 0.0 x10^3/uL (0.0-0.2) 05/17/18 04:55 Baso # (Auto) 0.1 X10^3/uL (0.0-0.1) 05/17/18 04:55 Absolute Nucleated RBC 0.0 /100WBC 05/17/18 04:55 D-Dimer 1230 ng/mL (0-400) H* 05/15/18 10:50 Sample Site [place] 05/17/18 08:45 ABG pH 7.390 (7.35-7.45) 05/17/18 08:45 ABG pCO2 57.0 mmHg (35.0-45.0) H* 05/17/18 08:45 ABG pO2 67.0 mmHg (80.0-100.0) L 05/17/18 08:45 ABG HCO3 34.5 mmol/L (22-26) H* 05/17/18 08:45 ABG O2 Saturation 93.0 % (90-100) 05/17/18 08:45 ABG Base Excess 7.8 mmol/L (-2.0-2.0) H 05/17/18 08:45 Kin Test Pos 05/17/18 08:45 A-a Gradient 61.0 mmHg 05/17/18 08:45 FiO2 28.0 05/17/18 08:45 Blood Gas Comments Greg well ah 05/17/18 08:45 Sodium 136 mmol/L (136-145) 05/17/18 04:55 Corrected Sodium TNP 05/17/18 04:55 Potassium 4.2 mmol/L (3.5-5.1) 05/17/18 04:55 Chloride 98 mmol/L (98-107) 05/17/18 04:55 Carbon Dioxide 30.6 mmol/L (21-32) 05/17/18 04:55 BUN 30 mg/dL (7-18) H 05/17/18 04:55 Creatinine 1.62 mg/dL (0.55-1.02) H 05/17/18 04:55 Est GFR (MDRD) Af Amer 39 (>60) L 05/17/18 04:55 Est GFR (MDRD) Non-Af 32 (>60) L 05/17/18 04:55 Glucose 91 mg/dL (65-99) 05/17/18 04:55 Calcium 8.4 mg/dL (8.5-10.1) L 05/17/18 04:55 Corrected Calcium 9.1 mg/dL (8.5-10.1) 05/17/18 04:55 Total Bilirubin 0.40 mg/dL (0.2-1.0) 05/17/18 04:55 AST 23 Units/L (15-37) 05/17/18 04:55 ALT 25 Units/L (12-78) 05/17/18 04:55 Alkaline Phosphatase 132 Units/L (46-116) H 05/17/18 04:55 Creatine Kinase 149 Units/L (26-192) 05/16/18 03:59 CK-MB (CK-2) 3.3 ng/mL (0-4.0) 05/16/18 03:59 CK/CKMB % Calc 2.2 % (<4) 05/16/18 03:59 Troponin I 0.02 ng/mL (0-1.5) 05/16/18 03:59 C-Reactive Protein 3.30 mg/L (0-3.0) H 05/15/18 10:50 Total Protein 6.4 g/dL (6.4-8.2) 05/17/18 04:55 Albumin 3.1 g/dL (3.4-5.0) L 05/17/18 04:55 Globulin 3.3 g/dL (2.5-4.5) 05/17/18 04:55 Albumin/Globulin Ratio 0.9 Ratio (1.1-2.1) L 05/17/18 04:55 Specimen Type Catherized urine 05/15/18 12:52 Urine Color Yellow (YELLOW) 05/15/18 12:52 Urine Appearance Clear (CLEAR) 05/15/18 12:52 Urine pH 6.5 (5.0 - 8.0) 05/15/18 12:52 Ur Specific [place] 1.010 (1.000-1.030) 05/15/18 12:52 Urine Protein Negative (NEGATIVE) 05/15/18 12:52 Urine Glucose (UA) Negative (NEGATIVE) 05/15/18 12:52 Urine Ketones Negative (NEGATIVE) 05/15/18 12:52 Urine Occult Blood Negative (NEGATIVE) 05/15/18 12:52 Urine Nitrite Negative (NEGATIVE) 05/15/18 12:52 Urine Bilirubin Negative (NEGATIVE) 05/15/18 12:52 Urine Urobilinogen Normal (NORMAL) 05/15/18 12:52 Ur Leukocyte Esterase Negative (NEGATIVE) 05/15/18 12:52 Urine RBC 0-2 /HPF (NONE SEEN) 05/15/18 09:44 Urine WBC 0-2 /HPF (NONE SEEN) 05/15/18 09:44 Ur Squamous Epith Cells Rare /HPF (NEGATIVE) 05/15/18 09:44 Amorphous Sediment Trace /HPF (NEGATIVE) 05/15/18 09:44 Urine Bacteria Trace /HPF (NEGATIVE) 05/15/18 09:44 Ur Culture Indicated? No/not indicated 05/15/18 09:44 - Plan (1) Abnormal CT scan, lung Status: Acute Plan: PT WILL NEED PET SCAN AND PULMONOLOGY REFERRAL (2) Pneumonia Status: Acute (3) Hypertension Status: Chronic Qualifiers: Hypertension type: essential hypertension Qualified Code(s): I10 - Essential (primary) hypertension (4) CHF (congestive heart failure) Status: Acute (5) COPD (chronic obstructive pulmonary disease) Status: Acute
[2018-05-17] MEDS: LEVAQUIN PREMIX IV 500 MG 500 MG/100 ML BAG IV SCH (15:05)
[2018-05-17] MEDS: NS 1000 ML 1,000 ML IV SCH (15:06)
--- NOTE | 2018-05-17 15:56 | RAD ---
HISTORY: CHF, shortness of breath, COPD Study: Single-view of the chest Comparison: May 15, 2018 Findings: The trachea is midline. The cardiac silhouette is enlarged pulmonary vascular congestion and bibasilar infiltrate and/or edema. Small bilateral pleural effusions are demonstrated as well right greater than left.. The aortic knob is partially calcified. IMPRESSION: Cardiomegaly with pulmonary vascular congestion and bibasilar infiltrate and/or edema. Small bilateral pleural effusions right greater than left. Reported By:
[2018-05-17] MEDS: REQUIP PO SCH (21:41)
[2018-05-17] MEDS: RESTORIL CAP 15 MG PO PRN (21:41)
[2018-05-18] MEDS: XOPENEX 1.25 MG/3 ML NEBULE NEB SCH ×4 (01:16→17:56)
[2018-05-18] MEDS: Atrovent NEB TX 0.02% NEB SCH ×4 (01:16→17:56)
[2018-05-18 05:30] LABS: BASOPHILS % (AUTO) 0.5 % (0.2-1.0); EOSINOPHILS # (AUTO) 0.1 x10^3/uL (0.0-0.2); HEMATOCRIT 31.2 % (36.0-47.0); HEMOGLOBIN 10.5 g/dL (12.0-16.0); LYMPHOCYTES # (AUTO) 0.7 X10^3/uL (1.3-2.9); LYMPHOCYTES % (AUTO) 12.4 % (21.0-51.0); MEAN CORPUSCULAR HEMOGLOBIN 30.7 pg (27.0-34.0); MEAN CORPUSCULAR HGB CONC 33.7 g/dL (33.0-35.0); MEAN PLATELET VOLUME 9.4 fL (7.4-11.0); MONOCYTES # (AUTO) 0.7 x10^3/uL (0.3-0.8); MONOCYTES % (AUTO) 11.2 % (0.0-13.0); NEUTROPHILS # (AUTO) 4.5 x10^3/uL (2.2-4.8); NEUTROPHILS % (AUTO) 74.9 % (42.0-75.0); PLATELET COUNT 225 X10^3/uL (150.0-450.0); RED BLOOD COUNT 3.43 X10^6/uL (3.5-5.4); RED CELL DISTRIBUTION WIDTH 14.4 % (11.6-16.5); WHITE BLOOD COUNT 6.1 X10^3/uL (3.6-10.0)
[2018-05-18 05:46] LABS: ALANINE AMINOTRANSFERASE 25 Units/L (12-78); ALKALINE PHOSPHATASE 133 Units/L (46-116); ASPARTATE AMINO TRANSFERASE 24 Units/L (15-37); BLOOD UREA NITROGEN 28 mg/dL (7-18); CALCIUM 8.7 mg/dL (8.5-10.1); CARBON DIOXIDE 36.1 mmol/L (21-32); CHLORIDE 98 mmol/L (98-107); COR CA(FOR HYPOALB) 9.5 mg/dL (8.5-10.1); CREATININE 1.54 mg/dL (0.55-1.02); SODIUM 138 mmol/L (136-145); TOTAL PROTEIN 6.3 g/dL (6.4-8.2); eGFR NON BLACK RACES 34 (>60)
[2018-05-18] MEDS: APRESOLINE TAB 25 MG PO SCH ×3 (06:05→21:19)
[2018-05-18] MEDS: NEURONTIN CAP 100 MG PO SCH ×3 (06:06→21:19)
[2018-05-18] MEDS: BROVANA IN SCH ×2 (08:35→20:44)
[2018-05-18] MEDS: PULMICORT NEB TX 0.5 MG NEB SCH ×2 (08:39→20:34)
[2018-05-18] MEDS: ELIQUIS PO SCH ×2 (08:41→21:20)
[2018-05-18] MEDS: MOBIC TAB 15 MG PO SCH (08:42)
[2018-05-18] MEDS: LASIX IVP SCH ×2 (08:42→21:21)
[2018-05-18] MEDS: ROBITUSSIN DM PO SCH ×4 (08:43→21:18)
[2018-05-18] MEDS: PRAVACHOL PO SCH (08:43)
[2018-05-18] MEDS: TAMBOCOR PO SCH ×2 (08:43→21:19)
[2018-05-18] MEDS: TUSSIONEX PENNKINETIC SUSP PO PRN (08:44)
[2018-05-18] MEDS: CHOLECALCIFEROL 400 MG PO SCH (08:45)
[2018-05-18 10:57] LABS: BILIRUBIN,URINE NEGATIVE (NEGATIVE); BLOOD/HEMOGLOBIN,URINE 5+ (NEGATIVE); GLUCOSE, URINE NEGATIVE (NEGATIVE); KETONES,URINE NEGATIVE (NEGATIVE); LEUKOCYTE ESTERASE ,URINE 1+ (NEGATIVE); NITRITES,URINE NEGATIVE (NEGATIVE); PROTEIN,URINE 1+ (NEGATIVE); UROBILINOGEN,URINE NORMAL (NORMAL)
[2018-05-18 11:06] LABS: APPEARANCE,URINE CLEAR (CLEAR); COLOR,URINE STRAW (YELLOW)
[2018-05-18 11:15] LABS: BACTERIA,URINE NEGATIVE /HPF (NEGATIVE); RBC,URINE TNTC /HPF (NONE SEEN); SQUAMOUS EPITHELIAL CELL,UR RARE /HPF (NEGATIVE)
[2018-05-18] MEDS: NS 1000 ML 1,000 ML IV SCH (14:49)
[2018-05-18] MEDS: RESTORIL CAP 15 MG PO PRN (21:19)
[2018-05-18] MEDS: REQUIP PO SCH (21:21)
[2018-05-19] MEDS: Atrovent NEB TX 0.02% NEB SCH ×4 (00:53→18:17)
[2018-05-19] MEDS: XOPENEX 1.25 MG/3 ML NEBULE NEB SCH ×4 (00:53→18:17)
[2018-05-19] MEDS: APRESOLINE TAB 25 MG PO SCH ×3 (05:24→21:31)
[2018-05-19] MEDS: NEURONTIN CAP 100 MG PO SCH ×3 (05:25→21:30)
[2018-05-19 05:30] LABS: BASOPHILS # (AUTO) 0.1 X10^3/uL (0.0-0.1); BASOPHILS % (AUTO) 0.8 % (0.2-1.0); EOSINOPHILS # (AUTO) 0.1 x10^3/uL (0.0-0.2); EOSINOPHILS % (AUTO) 1.5 % (0.9-2.9); HEMATOCRIT 32.1 % (36.0-47.0); HEMOGLOBIN 10.9 g/dL (12.0-16.0); LYMPHOCYTES # (AUTO) 0.6 X10^3/uL (1.3-2.9); LYMPHOCYTES % (AUTO) 8.9 % (21.0-51.0); MEAN CORPUSCULAR HEMOGLOBIN 30.9 pg (27.0-34.0); MEAN CORPUSCULAR VOLUME 90.8 fL (80.0-100.0); MEAN PLATELET VOLUME 9.2 fL (7.4-11.0); MONOCYTES # (AUTO) 0.7 x10^3/uL (0.3-0.8); MONOCYTES % (AUTO) 11.6 % (0.0-13.0); NEUTROPHILS # (AUTO) 4.9 x10^3/uL (2.2-4.8); NEUTROPHILS % (AUTO) 77.2 % (42.0-75.0); PLATELET COUNT 230 X10^3/uL (150.0-450.0); RED BLOOD COUNT 3.54 X10^6/uL (3.5-5.4); RED CELL DISTRIBUTION WIDTH 14.4 % (11.6-16.5); WHITE BLOOD COUNT 6.4 X10^3/uL (3.6-10.0)
[2018-05-19 05:49] LABS: ALANINE AMINOTRANSFERASE 22 Units/L (12-78); ALKALINE PHOSPHATASE 136 Units/L (46-116); ASPARTATE AMINO TRANSFERASE 25 Units/L (15-37); BLOOD UREA NITROGEN 27 mg/dL (7-18); CALCIUM 8.6 mg/dL (8.5-10.1); CARBON DIOXIDE 37.9 mmol/L (21-32); CHLORIDE 98 mmol/L (98-107); COR CA(FOR HYPOALB) 9.4 mg/dL (8.5-10.1); CREATININE 1.42 mg/dL (0.55-1.02); SODIUM 139 mmol/L (136-145); TOTAL PROTEIN 6.2 g/dL (6.4-8.2); eGFR NON BLACK RACES 38 (>60)
[2018-05-19] MEDS ORDERED: POTASSIUM CHL 40 MEQ/NS 0.45% 500 ML IV PRN (05:56)
[2018-05-19] MEDS ORDERED: POTASSIUM CHLORIDE LIQ 20 MEQ UDC PO PRN (05:56)
[2018-05-19] MEDS ORDERED: POTASSIUM CHL 60 MEQ/NS 0.45% 500 ML IV PRN (05:56)
[2018-05-19] MEDS ORDERED: KLOR-CON PO PRN (05:56)
[2018-05-19] MEDS ORDERED: MICRO K EXTEN CAP 10 MEQ PO PRN (05:56)
[2018-05-19] MEDS ORDERED: K-RIDER 10 MEQ/NS 100 ML 10 MEQ/100 ML BAG IV PRN (05:56)
[2018-05-19] MEDS: K-DUR TAB 20 MEQ PO PRN ×2 (06:21→21:32)
[2018-05-19] MEDS: LASIX IVP SCH ×2 (08:30→21:30)
[2018-05-19] MEDS: MOBIC TAB 15 MG PO SCH (08:30)
[2018-05-19] MEDS: TUSSIONEX PENNKINETIC SUSP PO PRN (08:30)
[2018-05-19] MEDS: TAMBOCOR PO SCH ×2 (08:31→21:30)
[2018-05-19] MEDS: PRAVACHOL PO SCH (08:31)
[2018-05-19] MEDS: ELIQUIS PO SCH (08:31)
[2018-05-19] MEDS: CHOLECALCIFEROL 400 MG PO SCH (08:31)
[2018-05-19] MEDS: ROBITUSSIN DM PO SCH ×4 (08:32→21:31)
[2018-05-19 09:07] LABS: ABG BASE EXCESS 16.2 mmol/L (-2.0-2.0)
[2018-05-19 09:09] LABS: ABG HCO3 42.4 mmol/L (22-26)
[2018-05-19] MEDS: BROVANA IN SCH ×2 (09:51→21:35)
[2018-05-19] MEDS: PULMICORT NEB TX 0.5 MG NEB SCH ×2 (09:52→21:14)
[2018-05-19] MEDS: ZYVOX 600MG IV 600 MG/300 ML BAG IV SCH ×2 (12:57→21:32)
[2018-05-19] MEDS ORDERED: MAGNESIUM SULFATE 1 GRAM/100 mL PREMIX 1 GM/100 ML BAG IV PRN (15:22)
[2018-05-19] MEDS ORDERED: DULCOLAX SUPPOSITORY 10 MG RECTAL ONE (15:58)
--- NOTE | 2018-05-19 18:26 | PCM.PROG ---
Progress Note - Progress Note for Day of Date of Exam: 05/19/18 - Subjective Subjective: 82 WF ER ADMISSION WITH CO SOB. PT HAD PLEURAL EFFUSION WITH NO HISTORY OF CHF. PT HAD CTA CHEST REVEALING 1.3 cm spiculated nodule within the lingula as above. This is suspicious. Recommend PET-CT for further characterization.WE DISCUSSED NEED FOR FURTHER EVALUATION, RN RENAL, CARDIOLOGY, CTS AND PT IS AGREEABLE WITH TRANSFER IF NECESSARU/ PT REPORTS HER BREATHING IS A LITTLE BETTER, LOWER EXTREMITY EDEMA IMPROVING. PT HAS [facility] CATH FOR STRICT I&OS WITH IV LASIX 20MG IV. PT ON IV ATBX THERAPY AND RESP THERAPY. PT IS AFEBRILE. BUN 27, CREAT 1.42. - Past Medical Family Social History Past Med/Fam/Surg Hx: No changes since H&P Allergies: Allergies No Known Drug Allergies Allergy (Verified 02/28/17 23:31) - Review of Systems ROS: No change since H&P - Vital Signs and I&O's Vital Signs: Temperature 98.1 F Pulse Rate [Right Brachial] 55 Pulse Rate [Left Radial] 66 Pulse Rate 62 Respiratory Rate 20 Blood Pressure [Right Arm] 169/74 Blood Pressure [Left Arm] 176/92 Blood Pressure [Standing] 207/91 Blood Pressure [Sitting] 212/91 Blood Pressure [Lying] 210/91 Blood Pressure 204/82 O2 Sat by Pulse Oximetry 94 Intake and Output: Intake & Output 05/17/18 05/18/18 05/19/18 05/20/18 11:59 11:59 11:59 11:59 Intake Total 1736 / 1736 2400 / 2400 2410 / 2410 1021 / 1021 Output Total 2150 / 2150 3650 / 3650 2325 / 2325 850 / 850 Balance -414 / -414 -1250 / -1250 85 / 85 171 / 171 - Physical Exam Oriented: Normal Eyes: Normal Ear: Normal Nose: Normal Throat: Normal Respiratory: Normal, Diminished, Wheezes Cardiovascular: Edema : Normal Auscultation: Bowel Sounds: Normal Tenderness: Normal Skin: Decreased Turgur Musculoskeletal: Back:Lumbar Psychiatric: Anxiety Affect: Anxious Speech Pattern: Clear, Appropriate - Laboratory and Diagnostics Result Diagrams: 05/19/18 05:08 05/19/18 17:24 Labs: 05/17/18 13:50 Sputum - Endotracheal Wash Sputum Culture - Final Methicillin Resis Staph Aureus 05/17/18 13:50 Sputum - Endotracheal Wash - Final 05/15/18 10:55 Blood Blood Culture - Preliminary 05/15/18 10:50 Blood Blood Culture - Preliminary Laboratory WBC 6.4 X10^3/uL (3.6-10.0) 05/19/18 05:08 RBC 3.54 X10^6/uL (3.5-5.4) 05/19/18 05:08 Hgb 10.9 g/dL (12.0-16.0) L 05/19/18 05:08 Hct 32.1 % (36.0-47.0) L 05/19/18 05:08 MCV 90.8 fL (80.0-100.0) 05/19/18 05:08 MCH 30.9 pg (27.0-34.0) 05/19/18 05:08 MCHC 34.0 g/dL (33.0-35.0) 05/19/18 05:08 RDW 14.4 % (11.6-16.5) 05/19/18 05:08 Plt Count 230 X10^3/uL (150.0-450.0) 05/19/18 05:08 MPV 9.2 fL (7.4-11.0) 05/19/18 05:08 Neut % (Auto) 77.2 % (42.0-75.0) H 05/19/18 05:08 Lymph % (Auto) 8.9 % (21.0-51.0) L 05/19/18 05:08 [place] % (Auto) 11.6 % (0.0-13.0) 05/19/18 05:08 Eos % (Auto) 1.5 % (0.9-2.9) 05/19/18 05:08 Baso % (Auto) 0.8 % (0.2-1.0) 05/19/18 05:08 Neut # (Auto) 4.9 x10^3/uL (2.2-4.8) H 05/19/18 05:08 Lymph # (Auto) 0.6 X10^3/uL (1.3-2.9) L 05/19/18 05:08 [place] # (Auto) 0.7 x10^3/uL (0.3-0.8) 05/19/18 05:08 Eos # (Auto) 0.1 x10^3/uL (0.0-0.2) 05/19/18 05:08 Baso # (Auto) 0.1 X10^3/uL (0.0-0.1) 05/19/18 05:08 Absolute Nucleated RBC 0.0 /100WBC 05/19/18 05:08 D-Dimer 1230 ng/mL (0-400) H* 05/15/18 10:50 Sample Site Left brachial 05/19/18 09:00 ABG pH 7.480 (7.35-7.45) H 05/19/18 09:00 ABG pCO2 57.0 mmHg (35.0-45.0) H* 05/19/18 09:00 ABG pO2 71.0 mmHg (80.0-100.0) L 05/19/18 09:00 ABG HCO3 42.4 mmol/L (22-26) H* 05/19/18 09:00 ABG O2 Saturation 95.0 % (90-100) 05/19/18 09:00 ABG Base Excess 16.2 mmol/L (-2.0-2.0) H 05/19/18 09:00 Kin Test Na 05/19/18 09:00 A-a Gradient 57.0 mmHg 05/19/18 09:00 FiO2 28.0 05/19/18 09:00 Blood Gas Comments Greg well aw 05/19/18 09:00 Sodium 139 mmol/L (136-145) 05/19/18 05:08 Corrected Sodium TNP 05/19/18 05:08 Potassium 3.8 mmol/L (3.5-5.1) 05/19/18 17:24 Chloride 98 mmol/L (98-107) 05/19/18 05:08 Carbon Dioxide 37.9 mmol/L (21-32) H 05/19/18 05:08 BUN 27 mg/dL (7-18) H 05/19/18 05:08 Creatinine 1.42 mg/dL (0.55-1.02) H 05/19/18 05:08 Est GFR (MDRD) Af Amer 46 (>60) L 05/19/18 05:08 Est GFR (MDRD) Non-Af 38 (>60) L 05/19/18 05:08 Glucose 89 mg/dL (65-99) 05/19/18 05:08 Calcium 8.6 mg/dL (8.5-10.1) 05/19/18 05:08 Corrected Calcium 9.4 mg/dL (8.5-10.1) 05/19/18 05:08 Magnesium 1.7 mg/dL (1.7-2.9) 05/19/18 05:08 Total Bilirubin 0.50 mg/dL (0.2-1.0) 05/19/18 05:08 AST 25 Units/L (15-37) 05/19/18 05:08 ALT 22 Units/L (12-78) 05/19/18 05:08 Alkaline Phosphatase 136 Units/L (46-116) H 05/19/18 05:08 Creatine Kinase 149 Units/L (26-192) 05/16/18 03:59 CK-MB (CK-2) 3.3 ng/mL (0-4.0) 05/16/18 03:59 CK/CKMB % Calc 2.2 % (<4) 05/16/18 03:59 Troponin I 0.02 ng/mL (0-1.5) 05/16/18 03:59 C-Reactive Protein 3.30 mg/L (0-3.0) H 05/15/18 10:50 Total Protein 6.2 g/dL (6.4-8.2) L 05/19/18 05:08 Albumin 3.0 g/dL (3.4-5.0) L 05/19/18 05:08 Globulin 3.2 g/dL (2.5-4.5) 05/19/18 05:08 Albumin/Globulin Ratio 0.9 Ratio (1.1-2.1) L 05/19/18 05:08 Specimen Type Catherized urine 05/18/18 10:42 Urine Color Straw (YELLOW) 05/18/18 10:42 Urine Appearance Clear (CLEAR) 05/18/18 10:42 Urine pH 5.0 (5.0 - 8.0) 05/18/18 10:42 Ur Specific [place] 1.010 (1.000-1.030) 05/18/18 10:42 Urine Protein 1+ (NEGATIVE) 05/18/18 10:42 Urine Glucose (UA) Negative (NEGATIVE) 05/18/18 10:42 Urine Ketones Negative (NEGATIVE) 05/18/18 10:42 Urine Occult Blood 5+ (NEGATIVE) 05/18/18 10:42 Urine Nitrite Negative (NEGATIVE) 05/18/18 10:42 Urine Bilirubin Negative (NEGATIVE) 05/18/18 10:42 Urine Urobilinogen Normal (NORMAL) 05/18/18 10:42 Ur Leukocyte Esterase 1+ (NEGATIVE) 05/18/18 10:42 Urine RBC Tntc /HPF (NONE SEEN) 05/18/18 10:42 Urine WBC 0-2 /HPF (NONE SEEN) 05/18/18 10:42 Ur Squamous Epith Cells Rare /HPF (NEGATIVE) 05/18/18 10:42 Amorphous Sediment Trace /HPF (NEGATIVE) 05/15/18 09:44 Urine Bacteria Negative /HPF (NEGATIVE) 05/18/18 10:42 Ur Culture Indicated? No/not indicated 05/18/18 10:42 - Plan (1) Abnormal CT scan, lung Status: Acute Plan: PT WILL NEED PET SCAN AND PULMONOLOGY REFERRAL (2) Pneumonia Status: Acute (3) Hypertension Status: Chronic Qualifiers: Hypertension type: essential hypertension Qualified Code(s): I10 - Essential (primary) hypertension (4) CHF (congestive heart failure) Status: Acute Plan: IV LASIX, STRICT I & OS (5) COPD (chronic obstructive pulmonary disease) Status: Acute (6) Paroxysmal A-fib Status: Acute Plan: EKG WITH SINUS RHYTHM, PT CURRENTLY ON TAMBOCOR AND ELIQUIS. HOLDING ELIQUIS
[2018-05-19] MEDS: XOPENEX 1.25 MG/3 ML NEBULE NEB PRN (21:14)
[2018-05-19] MEDS: REQUIP PO SCH (21:30)
[2018-05-19] MEDS: RESTORIL CAP 15 MG PO PRN (21:31)
[2018-05-20] MEDS: Atrovent NEB TX 0.02% NEB SCH ×4 (00:49→18:00)
[2018-05-20] MEDS: XOPENEX 1.25 MG/3 ML NEBULE NEB SCH ×4 (00:49→18:00)
[2018-05-20 05:21] LABS: BASOPHILS # (AUTO) 0.1 X10^3/uL (0.0-0.1); BASOPHILS % (AUTO) 1.2 % (0.2-1.0); EOSINOPHILS # (AUTO) 0.2 x10^3/uL (0.0-0.2); HEMOGLOBIN 11.1 g/dL (12.0-16.0); LYMPHOCYTES # (AUTO) 0.8 X10^3/uL (1.3-2.9); LYMPHOCYTES % (AUTO) 12.4 % (21.0-51.0); MEAN CORPUSCULAR HEMOGLOBIN 30.7 pg (27.0-34.0); MEAN CORPUSCULAR HGB CONC 33.6 g/dL (33.0-35.0); MEAN CORPUSCULAR VOLUME 91.4 fL (80.0-100.0); MEAN PLATELET VOLUME 9.1 fL (7.4-11.0); MONOCYTES # (AUTO) 0.7 x10^3/uL (0.3-0.8); MONOCYTES % (AUTO) 11.3 % (0.0-13.0); NEUTROPHILS # (AUTO) 4.7 x10^3/uL (2.2-4.8); NEUTROPHILS % (AUTO) 72.1 % (42.0-75.0); PLATELET COUNT 226 X10^3/uL (150.0-450.0); RED BLOOD COUNT 3.61 X10^6/uL (3.5-5.4); RED CELL DISTRIBUTION WIDTH 14.2 % (11.6-16.5); WHITE BLOOD COUNT 6.5 X10^3/uL (3.6-10.0)
[2018-05-20 05:41] LABS: ALANINE AMINOTRANSFERASE 21 Units/L (12-78); ALBUMIN 2.9 g/dL (3.4-5.0); ALKALINE PHOSPHATASE 128 Units/L (46-116); ASPARTATE AMINO TRANSFERASE 26 Units/L (15-37); BLOOD UREA NITROGEN 23 mg/dL (7-18); CALCIUM 8.7 mg/dL (8.5-10.1); CARBON DIOXIDE 38.7 mmol/L (21-32); CHLORIDE 95 mmol/L (98-107); COR CA(FOR HYPOALB) 9.6 mg/dL (8.5-10.1); CREATININE 1.38 mg/dL (0.55-1.02); SODIUM 138 mmol/L (136-145); TOTAL PROTEIN 6.2 g/dL (6.4-8.2); eGFR NON BLACK RACES 39 (>60)
[2018-05-20] MEDS: NEURONTIN CAP 100 MG PO SCH ×2 (05:56→14:06)
[2018-05-20] MEDS: APRESOLINE TAB 25 MG PO SCH ×2 (05:56→14:06)
[2018-05-20] MEDS: PULMICORT NEB TX 0.5 MG NEB SCH (09:25)
[2018-05-20] MEDS: BROVANA IN SCH (09:37)
[2018-05-20] MEDS: ZYVOX 600MG IV 600 MG/300 ML BAG IV SCH (10:25)
[2018-05-20] MEDS: TAMBOCOR PO SCH (10:25)
[2018-05-20] MEDS: ROBITUSSIN DM PO SCH ×3 (10:26→16:59)
[2018-05-20] MEDS: LASIX IVP SCH (10:26)
[2018-05-20] MEDS: MOBIC TAB 15 MG PO SCH (10:26)
[2018-05-20] MEDS: PRAVACHOL PO SCH (10:26)
[2018-05-20] MEDS: CHOLECALCIFEROL 400 MG PO SCH (10:27)
--- NOTE | 2018-05-20 12:55 | RAD ---
HISTORY: CHF, COPD, pneumonia Study: Two-view chest Comparison: 05/17/2018. Findings: Trachea is midline. There is cardiomegaly with pulmonary vascular congestion and signs of CHF with interstitial edema bilaterally and likely alveolar edema right lung base. There are bilateral pleural effusions, larger on the right side. Some improved aeration is noted in the left lung base compared to prior studies. Osseous structures are intact. IMPRESSION: Cardiomegaly with CHF and signs of pulmonary interstitial and alveolar edema with bilateral pleural effusions. Some improvement in aeration is noted in the left lung base. Reported By:
--- NOTE | 2018-05-20 13:03 | PCM.PROG ---
Progress Note - Progress Note for Day of Date of Exam: 05/20/18 - Subjective Subjective: 82 WF ER ADMISSION WITH CO SOB. PT HAD PLEURAL EFFUSION WITH NO HISTORY OF CHF. PT HAD CTA CHEST REVEALING 1.3 cm spiculated nodule within the lingula as above. This is suspicious. Recommend PET-CT for further characterization.WE DISCUSSED NEED FOR FURTHER EVALUATION, CARDIOLOGY CONSULTANTS, CARDIOLOGY, CTS AND PT IS AGREEABLE WITH TRANSFER IF NECESSARU/ PT REPORTS HER BREATHING IS A LITTLE BETTER, LOWER EXTREMITY EDEMA IMPROVING. PT HAS [facility] CATH FOR STRICT I&OS WITH IV LASIX 20MG IV. PT ON IV ATBX THERAPY AND RESP THERAPY. PT IS AFEBRILE. BUN 23, CREAT 1.38. - Past Medical Family Social History Past Med/Fam/Surg Hx: No changes since H&P Allergies: Allergies No Known Drug Allergies Allergy (Verified 02/28/17 23:31) - Review of Systems ROS: No change since H&P - Vital Signs and I&O's Vital Signs: Temperature 98.2 F Pulse Rate [Right Brachial] 52 Pulse Rate [Left Radial] 66 Pulse Rate 59 Respiratory Rate 18 Blood Pressure [Right Arm] 142/65 Blood Pressure [Left Arm] 176/92 Blood Pressure [Standing] 207/91 Blood Pressure [Sitting] 212/91 Blood Pressure [Lying] 210/91 Blood Pressure 204/82 O2 Sat by Pulse Oximetry 94 Intake and Output: Intake & Output 05/18/18 05/19/18 05/20/18 05/21/18 11:59 11:59 11:59 11:59 Intake Total 2400 / 2400 2410 / 2410 2000 Output Total 3650 / 3650 2325 / 2325 2400 / 2400 Balance -1250 / -1250 85 / 85 -399 / -399 - Physical Exam Oriented: Normal Eyes: Normal Ear: Normal Nose: Normal Throat: Normal Respiratory: Normal, Diminished, Wheezes Cardiovascular: Edema : Normal Auscultation: Bowel Sounds: Normal Tenderness: Normal Skin: Decreased Turgur Musculoskeletal: Back:Lumbar Psychiatric: Anxiety Affect: Anxious Speech Pattern: Clear, Appropriate - Laboratory and Diagnostics Result Diagrams: 05/20/18 04:50 05/20/18 04:50 Labs: 05/17/18 13:50 Sputum - Endotracheal Wash Sputum Culture - Final Methicillin Resis Staph Aureus 05/17/18 13:50 Sputum - Endotracheal Wash - Final 05/15/18 10:55 Blood Blood Culture - Preliminary 05/15/18 10:50 Blood Blood Culture - Preliminary Laboratory WBC 6.5 X10^3/uL (3.6-10.0) 05/20/18 04:50 RBC 3.61 X10^6/uL (3.5-5.4) 05/20/18 04:50 Hgb 11.1 g/dL (12.0-16.0) L 05/20/18 04:50 Hct 33.0 % (36.0-47.0) L 05/20/18 04:50 MCV 91.4 fL (80.0-100.0) 05/20/18 04:50 MCH 30.7 pg (27.0-34.0) 05/20/18 04:50 MCHC 33.6 g/dL (33.0-35.0) 05/20/18 04:50 RDW 14.2 % (11.6-16.5) 05/20/18 04:50 Plt Count 226 X10^3/uL (150.0-450.0) 05/20/18 04:50 MPV 9.1 fL (7.4-11.0) 05/20/18 04:50 Neut % (Auto) 72.1 % (42.0-75.0) 05/20/18 04:50 Lymph % (Auto) 12.4 % (21.0-51.0) L 05/20/18 04:50 [place] % (Auto) 11.3 % (0.0-13.0) 05/20/18 04:50 Eos % (Auto) 3.0 % (0.9-2.9) H 05/20/18 04:50 Baso % (Auto) 1.2 % (0.2-1.0) H 05/20/18 04:50 Neut # (Auto) 4.7 x10^3/uL (2.2-4.8) 05/20/18 04:50 Lymph # (Auto) 0.8 X10^3/uL (1.3-2.9) L 05/20/18 04:50 [place] # (Auto) 0.7 x10^3/uL (0.3-0.8) 05/20/18 04:50 Eos # (Auto) 0.2 x10^3/uL (0.0-0.2) 05/20/18 04:50 Baso # (Auto) 0.1 X10^3/uL (0.0-0.1) 05/20/18 04:50 Absolute Nucleated RBC 0.0 /100WBC 05/20/18 04:50 D-Dimer 1230 ng/mL (0-400) H* 05/15/18 10:50 Sample Site Left brachial 05/19/18 09:00 ABG pH 7.480 (7.35-7.45) H 05/19/18 09:00 ABG pCO2 57.0 mmHg (35.0-45.0) H* 05/19/18 09:00 ABG pO2 71.0 mmHg (80.0-100.0) L 05/19/18 09:00 ABG HCO3 42.4 mmol/L (22-26) H* 05/19/18 09:00 ABG O2 Saturation 95.0 % (90-100) 05/19/18 09:00 ABG Base Excess 16.2 mmol/L (-2.0-2.0) H 05/19/18 09:00 Kin Test Na 05/19/18 09:00 A-a Gradient 57.0 mmHg 05/19/18 09:00 FiO2 28.0 05/19/18 09:00 Blood Gas Comments Greg well aw 05/19/18 09:00 Sodium 138 mmol/L (136-145) 05/20/18 04:50 Corrected Sodium TNP 05/20/18 04:50 Potassium 3.9 mmol/L (3.5-5.1) 05/20/18 04:50 Chloride 95 mmol/L (98-107) L 05/20/18 04:50 Carbon Dioxide 38.7 mmol/L (21-32) H 05/20/18 04:50 BUN 23 mg/dL (7-18) H 05/20/18 04:50 Creatinine 1.38 mg/dL (0.55-1.02) H 05/20/18 04:50 Est GFR (MDRD) Af Amer 47 (>60) L 05/20/18 04:50 Est GFR (MDRD) Non-Af 39 (>60) L 05/20/18 04:50 Glucose 92 mg/dL (65-99) 05/20/18 04:50 Calcium 8.7 mg/dL (8.5-10.1) 05/20/18 04:50 Corrected Calcium 9.6 mg/dL (8.5-10.1) 05/20/18 04:50 Magnesium 1.7 mg/dL (1.7-2.9) 05/19/18 05:08 Total Bilirubin 0.40 mg/dL (0.2-1.0) 05/20/18 04:50 AST 26 Units/L (15-37) 05/20/18 04:50 ALT 21 Units/L (12-78) 05/20/18 04:50 Alkaline Phosphatase 128 Units/L (46-116) H 05/20/18 04:50 Creatine Kinase 149 Units/L (26-192) 05/16/18 03:59 CK-MB (CK-2) 3.3 ng/mL (0-4.0) 05/16/18 03:59 CK/CKMB % Calc 2.2 % (<4) 05/16/18 03:59 Troponin I 0.02 ng/mL (0-1.5) 05/16/18 03:59 C-Reactive Protein 3.30 mg/L (0-3.0) H 05/15/18 10:50 Total Protein 6.2 g/dL (6.4-8.2) L 05/20/18 04:50 Albumin 2.9 g/dL (3.4-5.0) L 05/20/18 04:50 Globulin 3.3 g/dL (2.5-4.5) 05/20/18 04:50 Albumin/Globulin Ratio 0.9 Ratio (1.1-2.1) L 05/20/18 04:50 Specimen Type Catherized urine 05/18/18 10:42 Urine Color Straw (YELLOW) 05/18/18 10:42 Urine Appearance Clear (CLEAR) 05/18/18 10:42 Urine pH 5.0 (5.0 - 8.0) 05/18/18 10:42 Ur Specific [place] 1.010 (1.000-1.030) 05/18/18 10:42 Urine Protein 1+ (NEGATIVE) 05/18/18 10:42 Urine Glucose (UA) Negative (NEGATIVE) 05/18/18 10:42 Urine Ketones Negative (NEGATIVE) 05/18/18 10:42 Urine Occult Blood 5+ (NEGATIVE) 05/18/18 10:42 Urine Nitrite Negative (NEGATIVE) 05/18/18 10:42 Urine Bilirubin Negative (NEGATIVE) 05/18/18 10:42 Urine Urobilinogen Normal (NORMAL) 05/18/18 10:42 Ur Leukocyte Esterase 1+ (NEGATIVE) 05/18/18 10:42 Urine RBC Tntc /HPF (NONE SEEN) 05/18/18 10:42 Urine WBC 0-2 /HPF (NONE SEEN) 05/18/18 10:42 Ur Squamous Epith Cells Rare /HPF (NEGATIVE) 05/18/18 10:42 Amorphous Sediment Trace /HPF (NEGATIVE) 05/15/18 09:44 Urine Bacteria Negative /HPF (NEGATIVE) 05/18/18 10:42 Ur Culture Indicated? No/not indicated 05/18/18 10:42 - Plan (1) Abnormal CT scan, lung Status: Acute Plan: PT WILL NEED PET SCAN AND PULMONOLOGY REFERRAL (2) Pneumonia Status: Acute (3) Hypertension Status: Chronic Qualifiers: Hypertension type: essential hypertension Qualified Code(s): I10 - Essential (primary) hypertension (4) CHF (congestive heart failure) Status: Acute Plan: IV LASIX, STRICT I & OS (5) COPD (chronic obstructive pulmonary disease) Status: Acute (6) Paroxysmal A-fib Status: Acute Plan: EKG WITH SINUS RHYTHM, PT CURRENTLY ON TAMBOCOR AND ELIQUIS. HOLDING ELIQUIS
[2018-05-20] MEDS: NS 1000 ML 1,000 ML IV SCH (14:23)
[2018-05-20] MEDS: NORCO 10/325 TAB PO PRN (17:00)
[2018-05-20 17:23] VITALS: BP 177/78
== END 2018-05-20 18:55 | disposition short-term general hospital (02) | DRG 178 ==
LOC: ER 09:08 → MED/SURG 11:24
PROVIDERS: ADMIT Internal Medicine; ATTEND Internal Medicine
DX: R91.8 Other nonspecific abnormal finding of lung field; Z79.01 Long term (current) use of anticoagulants; I48.0 Paroxysmal atrial fibrillation; R06.02 Shortness of breath; J90 Pleural effusion, not elsewhere classified; J44.1 Chronic obstructive pulmonary disease with (acute) exacerbation; E78.2 Mixed hyperlipidemia; I11.0 Hypertensive heart disease with heart failure; R79.89 Other specified abnormal findings of blood chemistry; R94.31 Abnormal electrocardiogram [ECG] [EKG]; J15.212 Pneumonia due to Methicillin resistant Staphylococcus aureus; R94.4 Abnormal results of kidney function studies; R79.82 Elevated C-reactive protein (CRP); I50.9 Heart failure, unspecified
CPT/HCPCS: 36415; 36600; 71010; 71020; 71045; 71046; 71250; 80053; 81001; 81003; 82550; 82553; 82803; 83735; 84132; 84484; 85025; 85378; 86140; 87040; 87070; 87077; 87186; 87205; 93005; 93306; 93970; 94640; 94669; 94760; 96365; 96372; 99283; A4222; J1100; J1940; J1956; J2020; J2060; J3475; J7030; J7620; J7626; J7644